=== PATIENT | male | born 1985 | race Caucasian/White ===

== ENCOUNTER 2016-06-21 00:34 | Emergency (ER) | payer SELFPAY ==
[~2016-06-21] VITALS: Ht 182.9 cm; Wt 82.0 kg
[2016-06-21 00:39] VITALS: Ht 182.9 cm; Wt 82.0 kg
--- NOTE | 2016-06-21 03:21 | ERD ---
ER Documentation Chief Complaint Date/Time DATE: 06/21/16 TIME: 03:20 Chief Complaint L testicle swollen, no UO x 6 hrs, abd. to lower back pain, on levaquin. HPI 31-year-old presents here in emergency department for complaints of left testicular pain for 2 weeks now. Patient described the pain as sharp pain, 8/10 scale, is worse upon touching the area accompanied with swelling. Patient denies any trauma and affected area. Patient was seen by primary care doctor, was already on 3 Different Antibiotics, Continues to Have the Pain and Symptoms. Patient Denies Any Hematuria or Dysuria. Patient Denies Any Fever or Chills. Patient Denies Any New Sexual Partners. Patient Denies Any Penile Discharge. ROS All systems reviewed and are negative except as per history of present illness. Medications Home Meds Reported Medications [none] Unknown Strength No Conflict Check 06/21/16 Allergies Allergies: Coded Allergies: No Known Allergy (Unverified , 06/21/16) PMhx/Soc Medical and Surgical Hx: pt denies Medical Hx, pt denies Surgical Hx FmHx Family History: No coronary disease, No diabetes, No other Physical Exam Vitals Vital Signs Date Time Temp Pulse Resp B/P Pulse Ox O2 Delivery O2 Flow Rate FiO2 06/21/16 00:39 97.5 93 20 151/86 99 Physical Exam GENERAL: The patient is well developed and appropriate for usual state of health, in no apparent distress. CHEST: Clear to auscultation bilaterally. There are no rales, wheezes or rhonchi. HEART: Regular rate and rhythm. No murmurs, clicks, rubs or gallops. No S3 or S4. ABDOMEN: Soft, nontender and nondistended. Good bowel sounds. No rebound or guarding. No gross peritonitis. No gross organomegaly or masses. No Glynn sign or McBurney point tenderness. BACK: No midline or flank tenderness. EXTREMITIES: Equal pulses bilaterally. There is no peripheral clubbing, cyanosis or edema. No focal swelling or erythema. Full range of motion. Grossly neurovascularly intact. NEURO: Alert and oriented. Cranial nerves 2-12 intact. Motor strength in all 4 extremities with 5/5 strength. Sensation grossly intact. Normal speech and gait. SKIN: There is no apparent rash or petechia. The skin is warm and dry. HEMATOLOGIC AND LYMPHATIC: There is no evidence of excessive bruising or lymphedema. No gross cervical, axillary, or inguinal lymphadenopathy. : Left testicular area tender on palpation with mild swelling noted, mild erythema noted. No pain or discharge noted. Right testicular area nontender. Results 24 hrs Laboratory Tests Test 06/21/16 03:22 Urine Bacteria FEW Urine Bilirubin NEGATIVE Urine Clarity CLEAR Urine Color LT. YELLOW Urine Glucose NEGATIVE% Urine Hemoglobin 1+ Urine Ketones NEGATIVE Urine Leukocyte Esterase NEGATIVE Urine Microscopic RBC 2-5/HPF Urine Microscopic WBC 0-2/HPF Urine Nitrite NEGATIVE Urine Specific [place] 1.025 Urine Squamous Epithelial Cells FEW Urine Total Protein NEGATIVE Urine Urobilinogen 1.0 E.U./dL Urine pH 7.0 Current Medications Medications (Trade) Dose Ordered Sig/Rodrigo Route PRN Reason Start Time Stop Time Status Last Admin Dose Admin Morphine Sulfate (morphine) 6 mg ONCE ONCE IM 06/21/16 03:30 06/21/16 03:31 DC 06/21/16 03:16 Hydromorphone HCl (Dilaudid) 1 mg ONCE STAT IV 06/21/16 03:49 06/21/16 03:51 DC 06/21/16 04:04 Ondansetron HCl (Zofran Inj) 4 mg ONCE STAT IV 06/21/16 03:49 06/21/16 03:51 DC 06/21/16 04:04 Patient was given medication for pain here in emergency department, after treatment, patient verbalized feeling much better. Patient's pain is improved. PROCEDURE: Testicle ultrasound with power Doppler. CLINICAL INDICATION: Scrotal pain. TECHNIQUE: Multiple sonographic images of the scrotal region were obtained utilizing a linear array transducer with grayscale and color-flow and a Doppler imaging. The images were reviewed on a high-resolution PACS workstation. COMPARISON: None. FINDINGS: The right testicle measures 4.2 x 2.0 x 2.3 cm and the left testicle measures 5.4 x 3.5 x 3.7 cm. Testicle arterial and venous flow are normal. There is no evidence of torsion. There is a heterogeneous mass within the left testicle measuring 4.0 x 2.6 x 3.1 cm with flow. There is no evidence of orchitis. Bilateral epididymi are normal in size, contour, position and echogenicity. The right epididymis measures 6.7 x 5.9 mm the left epididymis measures 14.1 x 6.9 mm. There is no evidence of epididymitis. There is no significant hydrocele or varicocele. Scrotal soft tissues are unremarkable. IMPRESSION: Heterogeneous mass within the left testicle measuring 4.0 x 2.6 x 3.1 cm suspicious for neoplastic disease. A call report was made to CINDI Arreola at 04:25 a.m. .Maximus Gomez MD, Date Time Electronically viewed and signed by .Maximus Gomez MD, MD on 06/21/2016 04:27 .T/ CC: HAKEEM ZARAGOZA NP Procedures/MDM Medical decision making: Patient has a 4 cm mass in the left testicular area most likely is causing the pain, as per ultrasound results, it is suspicious for possible neoplastic disease, this was communicated to the patient, the patient was advised to see a urologist specialist for further evaluation of possible biopsy. Patient was given pain medication, ibuprofen and [place], patient was advised to follow-up with primary care doctor in 2-3 days and referred to a urologist specialist. Patient is advised to return to emergency department for high fever, hematuria dysuria, abdominal pain, or any other worsening symptoms. Departure Diagnosis: Primary Impression: Testicular mass Condition: Stable Patient Instructions: Testicular Pain, Unclear Cause Additional Instructions: , the patient was advised to see a urologist specialist for further evaluation of possible biopsy. Patient was given pain medication, ibuprofen and [place], patient was advised to follow-up with primary care doctor in 2-3 days and referred to a urologist specialist. Patient is advised to return to emergency department for high fever, hematuria dysuria, abdominal pain, or any other worsening symptoms. HAKEEM ZARAGOZA NP Jun 21, 2016 03:21
[2016-06-21] MEDS ORDERED: morphine 10 MG INJ IM ONE (03:30)
[2016-06-21] MEDS ORDERED: ONDANSETRON 4 MG INJ IV STA (03:49)
[2016-06-21] MEDS ORDERED: HYDROmorphONE 1 MG/ML SYG IV STA (03:49)
[2016-06-21 03:54] LABS: ADD UMIC YES; URINE BILIRUBIN (Dip) NEGATIVE (NEGATIVE); URINE BLOOD (Dip) 1+ (NEGATIVE); URINE COLOR LT. YELLOW (YELLOW); URINE GLUCOSE (Dip) NEGATIVE (NEGATIVE); URINE KETONES (Dip) NEGATIVE (NEGATIVE); URINE LEUKOCYTE ESTERASE (Dip) NEGATIVE (NEGATIVE); URINE NITRITE (Dip) NEGATIVE (NEGATIVE); URINE TOTAL PROTEIN (Dip) NEGATIVE (NEGATIVE); URINE UROBILINOGEN (Dip) 1.0 E.U./dL (0.1-1.0)
[2016-06-21 04:12] LABS: BACTERIA,URINE FEW; SQUAMOUS EPITHELIAL CELL,UR FEW
--- NOTE | 2016-06-21 04:27 | RADRPT ---
PROCEDURE: Testicle ultrasound with power Doppler. CLINICAL INDICATION: Scrotal pain. TECHNIQUE: Multiple sonographic images of the scrotal region were obtained utilizing a linear arra y transducer with grayscale and color-flow and a Doppler imaging. The images were reviewed on a high -resolution PACS workstation. COMPARISON: None. FINDINGS: The right testicle measures 4.2 x 2.0 x 2.3 cm and the left testicle measures 5.4 x 3.5 x 3.7 cm. Te sticle arterial and venous flow are normal. There is no evidence of torsion. There is a heterogeneo us mass within the left testicle measuring 4.0 x 2.6 x 3.1 cm with flow. There is no evidence of or chitis. Bilateral epididymi are normal in size, contour, position and echogenicity. The right epididymis me asures 6.7 x 5.9 mm the left epididymis measures 14.1 x 6.9 mm. There is no evidence of epididymitis . There is no significant hydrocele or varicocele. Scrotal soft tissues are unremarkable. IMPRESSION: Heterogeneous mass within the left testicle measuring 4.0 x 2.6 x 3.1 cm suspicious for neoplastic d isease. A call report was made to CINDI Arreola at 04:25 a.m. .Maximus Gomez MD, MD Date Time Electronically viewed and signed by .Maximus Gomez MD, on 06/21/2016 04:27 .T/
[2016-06-21] MEDS ORDERED: HYDR-906 PO (04:38)
[2016-06-21] MEDS ORDERED: IBUP-1542 PO (04:38)
[2016-06-21 04:49] VITALS: BP 125/75; PULSE 71; RESP 16; TEMP 98
== END 2016-06-21 04:50 | disposition home or self-care (01) ==
LOC: FTE 00:34
DX: N50.9 Disorder of male genital organs, unspecified (principal); F17.210 Nicotine dependence, cigarettes, uncomplicated
CPT/HCPCS: 76870; 81001; 87591; 96372; 96374; 96375; 99285; J1170; J2270; J2405; 81003